=== PATIENT | male | born 1965 | race African-American/Black ===

== ENCOUNTER 2023-03-22 19:05 | Emergency (ER) | payer OTHER ==
[~2023-03-22] VITALS: Ht 180.3 cm; Wt 76.7 kg
[2023-03-22 19:33] VITALS: BP 151/98; PULSE 74; RESP 18; TEMP 98.1
== END 2023-03-22 19:51 | disposition home or self-care (01) ==
LOC: ER 19:05
DX: M54.50 Low back pain, unspecified (principal); I10 Essential (primary) hypertension
CPT/HCPCS: 99282